=== PATIENT | female | born 1970 | race African-American/Black ===

== ENCOUNTER 2021-03-15 01:37 | Emergency (ER) | payer SELFPAY ==
[2021-03-15] MEDS ORDERED: Iopamidol 370 76% 100 ML VIAL FS ONE (01:38)
[2021-03-15] MEDS ORDERED: Ondansetron PF 4 MG/2 ML Vial ONE ×2 (01:54→02:24)
[2021-03-15 01:58] LABS: #Basophils 0.1 thou/uL (0.0-0.2); #Eosinphils 0.1 thou/uL (0.0-0.7); #Lymphocytes 1.9 thou/uL (1.20-3.40); #Monocytes 0.3 thou/uL (0.11-0.59); #Neutrophils 4.6 thou/uL (1.40-6.50); %Basophils 0.9 % (0.0-1.0); %Eosinophils 1.3 % (0.0-10.0); %Lymphocytes 26.9 % (21.0-51.0); Mean Corpuscular HGB CONC 31.4 g/dL (32.0-36.0); Mean Corpuscular Hemoglobin 27.4 pg (27.0-31.0); Mean Corpuscular Volume 87.3 fL (78.0-98.0); Mean Platelet Volume 7.3 fL (7.4-10.4); Platelet Count 232 thou/uL (130-400); RBC Distribution Width 12.8 % (11.5-14.5); White Blood Cell (WBC) Count 6.9 thou/uL (4.8-10.8)
[2021-03-15] MEDS ORDERED: Aspirin Chewable 81 MG TAB ONE (02:13)
[2021-03-15] MEDS ORDERED: Ketorolac Tromethamine 30 MG/ML VIAL ONE (02:13)
[2021-03-15] MEDS ORDERED: Sodium Chloride 0.9% 1,000 ML ONE (02:13)
[2021-03-15] MEDS ORDERED: Nitroglycerin 2% Ointment 1 INCH/1 GM Packet ONE (02:13)
[2021-03-15 02:14] LABS: ALT (SGPT) 46 U/L (8-55); AST (SGOT) 103 U/L (5-34); Albumin 4.3 g/dL (3.5-5.0); Alkaline Phosphatase 59 U/L (40-110); Anion Gap 15 mmol/L (10-20); BUN (Urea Nitrogen) 21 mg/dL (9.8-20.1); Bilirubin, Total 0.6 mg/dL (0.2-1.2); CK (CPK) 170 U/L (29-168); Calc. Creatinine Clearance 0 mL/min (70-130); Calcium 9.8 mg/dL (7.8-10.44); Carbon Dioxide 26 mmol/L (22-29); Chloride 104 mmol/L (98-107); Glucose 122 mg/dL (70-105); Lipase 40 U/L (8-78); Potassium 3.4 mmol/L (3.5-5.1); Protein, Total 7.3 g/dL (6.0-8.3); Sodium 142 mmol/L (136-145)
[2021-03-15] MEDS ORDERED: Fentanyl 100 MCG/2 ML VIAL ONE ×2 (02:37→03:42)
[2021-03-15] MEDS ORDERED: Mag-Al Plus 1200 MG/1200 MG/120 MG/30 ML UDCUP ONE (03:42)
[2021-03-15] MEDS ORDERED: Lidocaine Viscous Sol 2% 15 ml UD Cup ONE (03:42)
== END 2021-03-15 04:36 | disposition short-term general hospital (02) ==
LOC: MADERS 01:37
DX: K80.50 Calculus of bile duct without cholangitis or cholecystitis without obstruction (principal); I10 Essential (primary) hypertension; E11.9 Type 2 diabetes mellitus without complications; G43.909 Migraine, unspecified, not intractable, without status migrainosus
CPT/HCPCS: 71045; 74177; 80053; 82550; 83690; 84484; 85025; 93005; 96374; 96375; 96376; J1885; J2405; J3010; J7050; Q9967

== ENCOUNTER 2022-04-19 21:28 | Emergency (ER) | payer SELFPAY ==
[2022-04-19] MEDS ORDERED: Sodium Chloride 0.9% 1,000 ML ONE (22:59)
[2022-04-19] MEDS ORDERED: diphenhydrAMINE 50 MG/ML VIAL ONE (22:59)
[2022-04-19 23:00] LABS: #Basophils 0.1 thou/uL (0.0-0.2); #Lymphocytes 0.9 thou/uL (1.20-3.40); #Monocytes 0.3 thou/uL (0.11-0.59); #Neutrophils 7.4 thou/uL (1.40-6.50); %Basophils 1.1 % (0.0-1.0); %Eosinophils 0.1 % (0.0-10.0); %Lymphocytes 9.8 % (21.0-51.0); %Monocytes 3.9 % (0.0-10.0); Mean Corpuscular HGB CONC 33.4 g/dL (32.0-36.0); Mean Corpuscular Hemoglobin 28.2 pg (27.0-31.0); Mean Corpuscular Volume 84.5 fl (78.0-98.0); Mean Platelet Volume 8.1 fL (7.4-10.4); Platelet Count 223 10x3/uL (130-400); RBC Distribution Width 12.1 % (11.5-14.5); Red Blood Cell (RBC) Count 4.61 mill/uL (4.20-5.40); White Blood Cell (WBC) Count 8.7 10x3/uL (4.8-10.8)
[2022-04-19] MEDS ORDERED: Prochlorperazine 10 MG/2 ML VIAL ONE (23:00)
[2022-04-19] MEDS ORDERED: Ketorolac Tromethamine 30 MG/ML VIAL ONE (23:00)
[2022-04-19 23:03] LABS: Bilirubin Negative (Negative); Blood, Urine Moderate (Negative); Clarity Clear (Clear); Glucose, Urine (Dipstick) Negative (Negative); Ketone, Urine Negative (Negative); Leukocyte Negative (Negative); Nitrite Negative (Negative); Protein, Urine (Dipstick) Negative (Neg-Trace); Specific Gravity, Urine 1.025 (1.005-1.030); pH, Urine 6.5 (5.0-9.0)
[2022-04-19 23:13] LABS: Bacteria/HPF None Seen HPF (None Seen); Mucous/LPF 1+ LPF (<2+); Transitional Epithelial 0-3 HPF (None Seen)
[2022-04-19 23:16] LABS: ALT (SGPT) 19 U/L (8-55); AST (SGOT) 30 U/L (5-34); Albumin 4.5 g/dL (3.5-5.0); Alkaline Phosphatase 67 U/L (40-110); Anion Gap 14 mmol/L (10-20); BUN (Urea Nitrogen) 12 mg/dL (9.8-20.1); Bilirubin, Total 0.8 mg/dL (0.2-1.2); Calc. Creatinine Clearance 0 mL/min (70-130); Calcium 9.7 mg/dL (7.8-10.44); Carbon Dioxide 25 mmol/L (22-29); Chloride 104 mmol/L (98-107); Estimated GFR 61; Globulin 2.6 g/dL (2.4-3.5); Glucose 108 mg/dL (70-105); Potassium 3.6 mmol/L (3.5-5.1); Protein, Total 7.1 g/dL (6.0-8.3); Sodium 139 mmol/L (136-145)
== END 2022-04-20 01:21 | disposition home or self-care (01) ==
LOC: MADERS 21:28
DX: G43.909 Migraine, unspecified, not intractable, without status migrainosus (principal); R07.89 Other chest pain; E11.40 Type 2 diabetes mellitus with diabetic neuropathy, unspecified; K21.9 Gastro-esophageal reflux disease without esophagitis; I10 Essential (primary) hypertension; Z79.899 Other long term (current) drug therapy
CPT/HCPCS: 36416; 71045; 80053; 81003; 81015; 84484; 85025; 93005; 96374; 96375; J0780; J1200; J1885; J7050

== ENCOUNTER 2024-11-10 13:09 | Emergency (ER) | payer MEDICAID, OTHER, SELFPAY ==
[2024-11-10] MEDS ORDERED: Aspirin Chewable 81 MG TAB ONE (13:41)
[2024-11-10 13:59] LABS: #Basophils 0.1 thou/uL (0.0-0.2); #Eosinophils 0.0 thou/uL (0.0-0.7); #Lymphocytes 1.9 thou/uL (1.20-3.40); #Monocytes 0.3 thou/uL (0.11-0.59); #Neutrophils 2.7 thou/uL (1.40-6.50); %Basophils 2.1 % (0.0-1.0); %Eosinophils 0.8 % (0.0-10.0); %Lymphocytes 37.1 % (21.0-51.0); %Monocytes 5.5 % (0.0-10.0); %Neutrophils 54.5 % (42.0-75.0); Hematocrit 38.5 % (36.0-47.0); Hemoglobin 12.6 g/dL (12.0-16.0); Mean Corpuscular Hemoglobin 28.0 pg (27.0-31.0); Mean Corpuscular Volume 85.8 fl (78.0-98.0); Platelet Count 245 10x3/uL (130-400); Red Blood Cell (RBC) Count 4.49 mill/uL (4.20-5.40); White Blood Cell (WBC) Count 5.0 10x3/uL (4.8-10.8)
[2024-11-10 14:09] LABS: ALT (SGPT) 18 U/L (Less than 34); AST (SGOT) 26 U/L (11-34); Albumin 4.6 g/dL (3.1-4.5); Alkaline Phosphatase 63 U/L (40-110); Anion Gap 16 mmol/L (10-20); BUN (Urea Nitrogen) 9 mg/dL (9.8-20.1); Bilirubin, Total 0.6 mg/dL (0.3-1.2); Calc. Creatinine Clearance 0 mL/min (70-130); Calcium 10.2 mg/dL (7.8-10.44); Carbon Dioxide 21 mmol/L (22-29); Chloride 110 mmol/L (98-107); Globulin 3.0 g/dL (2.4-3.5); Glucose 105 mg/dL (70-105); Potassium 3.3 mmol/L (3.5-5.1); Sodium 144 mmol/L (136-145); Troponin I 0.013 ng/mL (< 0.028)
[2024-11-10] MEDS ORDERED: Ketorolac Tromethamine 30 MG (1 mL) VIAL ONE (14:31)
[2024-11-10 15:31] LABS: Troponin I Less than 0.010 ng/mL (< 0.028)
== END 2024-11-10 15:49 | disposition home or self-care (01) ==
LOC: MADERS 13:09
DX: F41.9 Anxiety disorder, unspecified (principal); R07.89 Other chest pain; M62.830 Muscle spasm of back; I10 Essential (primary) hypertension; E11.40 Type 2 diabetes mellitus with diabetic neuropathy, unspecified
CPT/HCPCS: 36415; 71045; 80053; 84484; 85025; 93005; 96374; J1885